=== PATIENT | female | born 1975 | race Two or more races ===

== ENCOUNTER 2017-05-08 19:47 | Emergency (ER) | payer SELFPAY ==
[2017-05-08 21:37] VITALS: BP 129/75
== END 2017-05-08 21:37 | disposition home or self-care (01) ==
LOC: ED 19:47
DX: L20.9 Atopic dermatitis, unspecified (principal); T78.40XA Allergy, unspecified, initial encounter; L40.9 Psoriasis, unspecified; X58.XXXA Exposure to other specified factors, initial encounter; Z79.899 Other long term (current) drug therapy
CPT/HCPCS: J1100